=== PATIENT | female | born 1995 | race Caucasian/White ===

== ENCOUNTER 2018-08-26 12:02 | Emergency (ER) | payer OTHER ==
[~2018-08-26] VITALS: Ht 157.5 cm; Wt 56.2 kg
[2018-08-26 12:19] VITALS: BP 112/69; Ht 157.5 cm; Wt 56.2 kg
== END 2018-08-26 13:02 | disposition home or self-care (01) ==
LOC: ED 12:02
DX: S30.861A Insect bite (nonvenomous) of abdominal wall, initial encounter (principal); S40.862A Insect bite (nonvenomous) of left upper arm, initial encounter; S40.861A Insect bite (nonvenomous) of right upper arm, initial encounter; S80.862A Insect bite (nonvenomous), left lower leg, initial encounter; S80.861A Insect bite (nonvenomous), right lower leg, initial encounter; J45.909 Unspecified asthma, uncomplicated; W57.XXXA Bitten or stung by nonvenomous insect and other nonvenomous arthropods, initial encounter; Y93.89 Activity, other specified; Y92.89 Other specified places as the place of occurrence of the external cause; Y99.8 Other external cause status

== ENCOUNTER 2018-10-12 23:21 | Emergency (ER) | payer OTHER ==
[~2018-10-12] VITALS: Ht 157.5 cm; Wt 56.2 kg
[2018-10-12 23:27] VITALS: Ht 157.5 cm; Wt 56.2 kg
[2018-10-13 00:35] VITALS: BP 102/66
== END 2018-10-13 00:35 | disposition home or self-care (01) ==
LOC: ED 23:21
DX: S50.11XA Contusion of right forearm, initial encounter (principal); J45.909 Unspecified asthma, uncomplicated; V49.9XXA Car occupant (driver) (passenger) injured in unspecified traffic accident, initial encounter; Y93.I9 Activity, other involving external motion; Y92.413 State road as the place of occurrence of the external cause; Y99.8 Other external cause status
CPT/HCPCS: Q0092

== ENCOUNTER 2020-02-04 12:08 | Emergency (ER) | payer OTHER ==
[~2020-02-04] VITALS: Ht 157.5 cm; Wt 63.5 kg
[2020-02-04 12:24] VITALS: BP 114/77; Ht 157.5 cm; Wt 63.5 kg
== END 2020-02-04 12:41 | disposition home or self-care (01) ==
LOC: ED 12:08
DX: K04.7 Periapical abscess without sinus (principal); K08.89 Other specified disorders of teeth and supporting structures; Z90.89 Acquired absence of other organs; J45.909 Unspecified asthma, uncomplicated

== ENCOUNTER 2020-04-11 20:42 | Emergency (ER) | payer OTHER ==
[~2020-04-11] VITALS: Ht 157.5 cm; Wt 65.3 kg
[2020-04-11 20:48] VITALS: Ht 157.5 cm; Wt 65.3 kg
[2020-04-11] MEDS ORDERED: CLARITIN LIQUI-10 MG PO (21:25)
[2020-04-11] MEDS ORDERED: PRE20 PO (21:25)
[2020-04-11 21:38] VITALS: BP 118/84
== END 2020-04-11 21:38 | disposition home or self-care (01) ==
LOC: ED 20:42
DX: R21 Rash and other nonspecific skin eruption (principal); J45.909 Unspecified asthma, uncomplicated; Z90.89 Acquired absence of other organs
CPT/HCPCS: J7512

== ENCOUNTER 2020-04-25 23:15 | Emergency (ER) | payer OTHER ==
[~2020-04-25] VITALS: Ht 157.5 cm; Wt 60.8 kg
[~2020-04-25 23:15] MED LIST: CLARITIN LIQUI-10 MG PO; PRE20 PO
[2020-04-25 23:29] VITALS: Ht 157.5 cm; Wt 60.8 kg
[2020-04-26] MEDS ORDERED: MOT600 PO (02:40)
[2020-04-26] MEDS ORDERED: AUGMENTIN 875-1 EACH PO (02:40)
[2020-04-26] MEDS ORDERED: ACETAMINOPHEN-H1 TA1 PO (02:40)
[2020-04-26 02:51] VITALS: BP 131/89
== END 2020-04-26 02:51 | disposition home or self-care (01) ==
LOC: ED 23:15
DX: K04.7 Periapical abscess without sinus (principal); J45.909 Unspecified asthma, uncomplicated